=== PATIENT | male | born 1980 | race Caucasian/White ===

== ENCOUNTER 2020-09-02 18:34 | Emergency (ER) | payer BC, SELFPAY ==
--- NOTE | ~2020-09-02 | CT_ITS ---
EXAMINATION: CT abdomen pelvis wo con DATE: 09/02/2020 20:27 INDICATION: Left flank pain. Hematuria. TECHNIQUE: Computed tomography (CT) of the abdomen and pelvis was performed without intravenous contr ast. Automated exposure control and iterative reconstruction technique were employed. The dose-length product was 319.09 mGy-cm. COMPARISON: None FINDINGS: Lung bases are clear. Heart size is normal. No pericardial or pleural effusion. Liver, gallbladder, s pleen, pancreas and bilateral adrenal glands are normal. Right kidney and ureter are normal with no u rolithiasis or hydronephrosis. There are at least 6 nonobstructing stones in the left kidney, the two largest relatively elongated stones in maximal dimension measure 8 mm at a lower pole calyx and 7 mm at the infundibulum of one of the lower pole calyces. No left-sided ureteral stones or hydronephrosi s. Phlebolith in the left hemipelvis. Decompressed bladder is unremarkable. Bowels including the appe ndix are normal. No free intraperitoneal gas or fluid. No pathologically enlarged abdominal or pelvic lymphadenopathy. Mild bilateral hip osteoarthritis. IMPRESSION: 1. A few nonobstructing stones in the left kidney. Reviewed, dictated and finalized at location A. TH IT SPECIALIST
[2020-09-02 18:37] VITALS: BP 135/81; PULSE 78; RESP 18; TEMP 36.6; O2SAT 100
[2020-09-02 18:50] LABS: Basophils Percent Auto 0.6 % (0.2-1.2); Eosinophils Absolute Auto 0.1 K/mm3 (0-0.3); Eosinophils Percent Auto 1.6 % (0-4.4); Hematocrit 44.2 % (42.0-52.0); Hemoglobin 14.4 g/dL (14.0-18.0); Immature Granulocyte Absolute 0.01 K/mm3 (0.00-0.031); Immature Granulocyte Percent A 0.2 % (0-0.5); Lymphocytes Absolute Auto 2.36 K/mm3 (0.9-3.2); Lymphocytes Percent Auto 36.6 % (18.3-44.2); Mean Corpuscular HGB Conc 32.6 g/dl (32-36); Mean Corpuscular Hemoglobin 31.6 pg (26-34); Mean Corpuscular Volume 96.9 fl (80-100); Mean Platelet Volume 9.6 fl (7.4-10.4); Monocytes Absolute Auto 0.4 K/mm3 (0.1-0.6); Monocytes Percent Auto 6.7 % (2.6-8.5); Neutrophils Absolute Auto 3.5 K/mm3 (1.3-6.7); Neutrophils Percent Auto 54.3 % (45.5-73.1); Platelet Count Result 318 k/mm3 (150-375); Red Blood Count 4.56 M/mm3 (4.6-6.20); Red Cell Distribution Width 12.5 % (11.5-14.5); White Blood Count 6.5 K/mm3 (4.5-10.0)
[2020-09-02 19:01] LABS: Alanine Aminotransferase 17 U/L (4-50); Albumin Level 4.5 g/dL (3.5-5.1); Alkaline Phosphatase 49 U/L (38-126); Anion Gap 6 mmol/L (8-16); Aspartate Amino Transferase 20 U/L (17-59); Bilirubin,Total 1.7 mg/dL (0.2-1.3); Blood Urea Nitrogen 14 mg/dL (9-20); Calcium 9.4 mg/dL (8.4-10.2); Carbon Dioxide 33 mmol/L (22-30); Chloride 101 mmol/L (98-107); Estimated CRCL calculation 114 ml/min; Estimated Glomerular Filt Rate > 60; Glucose 114 mg/dL (75-110); Lipase 108 U/L (23-300); Potassium 3.9 mmol/L (3.4-5.0); Sodium 140 mmol/L (137-145)
[2020-09-02 19:06] LABS: Add Urine Microscopic? YES; Appearance Urine Clear (Clear); Bacteria Urine Trace /hpf; Bilirubin Urine Negative (Negative); Blood Urine 3+ (Negative); Color Urine Straw (Yellow); Glucose Urine UA Negative (Negative); Ketones Urine Negative (Negative); Leukocyte Esterase Ur Negative LEU/UL (Negative); Mucus Urine Rare /lpf; Nitrate Urine Negative (Negative); Protein Urine Negative (Negative); RBC Urine 0-2 /hpf (0-2); Specific Grav Ur 1.006 (1.001-1.035); Urobilinogen Urine Negative mg/dL (<2.0); WBC Urine 0-3 /hpf
--- NOTE | 2020-09-02 20:19 | ED.GENADULT ---
HPI - General Adult General Chief complaint: Urogenital-Male Stated complaint: gross hematuria Time Seen by Provider: 09/02/20 18:54 Source: patient History of Present Illness HPI narrative: Patient is a 39 y/o male complaining of left back pain since 4 days ago. He describes his pain as sharp and rates it as 2-3/10. He states that his pain radiates to his lower abdomen. He also has intermittent dark urine. He denies any fever, chill, vomiting or dysuria. He was seen at urgent care earlier and told to come to ED for evaluation. Review of Systems Constitutional: Constitutional: Denies chills, Denies fever(s), Denies headache(s) and Denies weakness Eyes: Eyes: Denies blurry vision ENT: Denies headache(s) and Denies neck pain Cardiovascular: Cardiovascular: Denies chest pain and Denies dyspnea Respiratory: Respiratory: Denies cough and Denies dyspnea Gastrointestinal: Gastrointestinal: Denies abdominal pain, Denies diarrhea, Denies nausea and Denies vomiting Genitourinary: Genitourinary: Reports hematuria, Denies dysuria and Reports flank pain Musculoskeletal: Musculoskeletal: Denies back pain and Denies neck pain Neurologic: Denies headache(s) and Denies weakness [facility] Social History Social History Gender identity (if verbalized by the patient): Male Exam Const: General: no acute distress and well developed Orientation/consciousness: oriented to person, oriented to place, oriented to time and patient oriented x3 HENMT: Head: normocephalic Ears: external ears normal General nose exam: Normal external nose present Eyes: General: appearance normal, both eyes and all related structures Conjunctivae: conjunctivae normal Neck: Neck: normal visual inspection and full ROM Chest: Chest palpation & inspection: normal inspection of the chest and no tenderness Resp: Effort & Inspection: normal respiratory effort Auscultation: clear to auscultation bilaterally Cardio: Rate: regular rate Rhythm: regular rhythm GI: GI Palp: No abdominal tenderness and Yes Soft to palpation Skin: General skin exam: normal color and turgor normal Neuro: General: oriented to person, oriented to place, oriented to time and patient oriented x3 Cognition (Neuro): normal cognition Extrem: General: normal to inspection, full ROM and no pedal edema Psych: Appearance: grossly normal Mental Status: mental status grossly normal Affect: normal affect Course Vital Signs Vital signs: Vital Signs Temperature 36.6 C 09/02/20 18:37 Pulse Rate 78 09/02/20 18:37 Respiratory Rate 18 09/02/20 18:37 Blood Pressure 135/81 09/02/20 18:37 Pulse Oximetry 100 09/02/20 18:37 Temperature 36.6 C 09/02/20 18:37 Pulse Rate 78 09/02/20 18:37 Respiratory Rate 18 09/02/20 18:37 Blood Pressure 135/81 09/02/20 18:37 Pulse Oximetry 100 09/02/20 18:37 Medical Decision Making Vital Signs Vital Signs: Vital Signs Temperature 36.6 C 09/02/20 18:37 Pulse Rate 78 09/02/20 18:37 Respiratory Rate 18 09/02/20 18:37 Blood Pressure 135/81 09/02/20 18:37 Pulse Oximetry 100 09/02/20 18:37 Temperature 36.6 C 09/02/20 18:37 Pulse Rate 78 09/02/20 18:37 Respiratory Rate 18 09/02/20 18:37 Blood Pressure 135/81 09/02/20 18:37 Pulse Oximetry 100 09/02/20 18:37 Lab Data Result diagrams: 09/02/20 18:44 09/02/20 18:44 Labs: Lab Results 09/02/20 09/02/20 09/02/20 Range/Units 18:44 18:44 18:50 WBC 6.5 (4.5-10.0) K/mm3 RBC 4.56 L (4.6-6.20) M/mm3 Hgb 14.4 (14.0-18.0) g/dL Hct 44.2 (42.0-52.0) % MCV 96.9 (80-100) fl MCH 31.6 (26-34) pg MCHC 32.6 (32-36) g/dl RDW 12.5 (11.5-14.5) % Plt Count 318 (150-375) k/mm3 MPV 9.6 (7.4-10.4) fl Immature Gran % (Auto) 0.2 (0-0.5) % Neut % (Auto) 54.3 (45.5-73.1) % Lymph % (Auto) 36.6 (18.3-44.2) % [place] % (Aut
[2020-09-02 21:11] VITALS: BP 106/69; PULSE 76; RESP 16; O2SAT 99
[2020-09-02 22:04] VITALS: BP 107/62; PULSE 72; RESP 18; O2SAT 99
== END 2020-09-02 22:24 | disposition home or self-care (01) ==
PROVIDERS: Emergency Medicine; Emergency Provider Emergency Medicine
DX: N20.0 Calculus of kidney (principal)
CPT/HCPCS: 36415; 74176; 80053; 81001; 83690; 85025; 99284

== ENCOUNTER → 2020-09-09 15:41 | Outpatient (CLI) | payer BC, SELFPAY ==
--- NOTE | ~2020-09-09 | XR_ITS ---
EXAMINATION: XR abdomen/kub 1V DATE: 09/09/2020 15:53 INDICATION: Knee stones TECHNIQUE: A supine view of the abdomen on 2 radiographs was obtained. COMPARISON: CT dated 09/02/2020 FINDINGS: The 3 largest left renal stones are visible in the left kidney including an 8 mm stone at the lower p ole, a 7 mm stone which appears to be repositioned now at the renal pelvis and a 2 mm stone at the up per pole. Phlebolith in the left hemipelvis. No right-sided urolithiasis or stones along the course o f the ureters. Normal bowel gas pattern. Lung bases are clear. IMPRESSION: 1. Left nephrolithiasis. Reviewed, dictated and finalized at location A. EMENT DIRECTOR IMPRESSION: 1. Left nephrolithiasis.
== END ==
PROVIDERS: Visit Provider Urology
DX: N20.0 Calculus of kidney (principal)
CPT/HCPCS: 74018

== ENCOUNTER 2020-09-12 14:43 | Outpatient (CLI) | payer BC, SELFPAY ==
[2020-09-12 15:29] LABS: Prothrombin Time 13.5 Seconds (11.1-14.7)
[2020-09-12 15:30] LABS: Partial Thromboplastin Time 26.6 SECONDS (22.3-36.8)
== END 2020-09-12 14:44 | disposition home or self-care (01) ==
PROVIDERS: Visit Provider Urology
DX: Z01.818 Encounter for other preprocedural examination (principal); N20.0 Calculus of kidney
CPT/HCPCS: 36415; 85610; 85730; 87086

== ENCOUNTER 2020-09-19 01:21 | Day surgery (SDC) | payer BC, SELFPAY ==
[2020-09-11 16:46] VITALS: BMI 24.4
[2020-09-19] VITALS (7 sets, daily range): BP systolic 109–137; BP diastolic 60–87; PULSE 57–79; RESP 14–20; TEMP 36.4–36.6; O2SAT 98–100
--- NOTE | ~2020-09-19 | XR_ITS ---
EXAMINATION: XR abdomen/kub 1V DATE: 09/19/2020 06:48 INDICATION: Lithotripsy TECHNIQUE: A supine view of the abdomen on 2 radiographs was obtained. COMPARISON: 09/09/2020 FINDINGS: Again seen are couple 7-8 mm stones projecting over the mid and lower left kidney. No evident right-s ided urolithiasis. A couple unchanged phleboliths in the left hemipelvis. Normal bowel gas pattern wi th moderate amount of colonic stool. Lung bases are clear. Bones are unremarkable. IMPRESSION: 1. Unchanged 7-8 mm left renal stones. Reviewed, dictated and finalized at location A. SCOPIC ENGINEERING TECHNICIAN
--- NOTE | 2020-09-19 07:00 | WPDHPUPDATE1 ---
History and Physical Update Update Date/Time: 09/19/20 07:00 History and Physical has been reviewed, including an updated exam of the patient. There are NO changes in the patient's condition. Risks, benefits, and alternatives have been discussed and questions answered. Patient agrees to proceed with procedure.
--- NOTE | 2020-09-19 07:05 | P.PNAN_ITS ---
Anes - Initial Pre Proc Eval Procedure: Operation Date: 09/19/20 08:30 Proposed Procedures p Left Extracorporeal Shock Wave Lithotripsy - Hayden Donnelly MD Date/Time: 09/19/20 07:05 Surgeon: Hayden Donnelly MD Pre Op Diagnosis: Left Kidney Stone Patient Data Age: 39 Gender: M Height: 5 ft 10 in Weight: 74 kg Allergies Allergy/AdvReac Type Severity Reaction Status Date / Time No Known Allergies Allergy Verified 09/19/20 06:51 Home Medications Medication Instructions Recorded Confirmed Type No Home Medications 09/11/20 09/19/20 History Patient hx anesthesia problems: none Family hx anesthesia problems: none [facility] Social History Social History Smoking status: Never smoker Living arrangements: with roommate(s) Gender identity (if verbalized by the patient): Male Spiritual care concerns: No Anes - Eval Final PreProcedure Day of Procedure 09/19/20 07:05 Patient weight: normal Heart: regular rate and rhythm Lungs: clear to auscultation Airway: Mallampati scale class II Neurological: alert and oriented Last oral intake: >/= 8 hours ASA classification: I Emergent: no Anesthetic plan: proceed Anesthesia type and monitoring: general LMA and standard monitoring Informed Consent: The patient's anesthetic plan and its attendant risks and benefits were discussed with the patient/family/POA. Questions were solicited and answers provided to the satisfaction of the patient/family/POA.
[2020-09-19] MEDS: LACTATED RINGERS 1,000 ML 30 ML IV CONT (07:16)
[2020-09-19] MEDS: ceFAZolin 2 GM/D5W 50 ML 2 GM/50 ML BAG IVPB (08:12)
--- NOTE | 2020-09-19 08:45 | P.OP_ITS ---
Procedure Note - Detailed Date of procedure: 09/19/20 Pre-op diagnosis: Left Kidney Stone Post-op diagnosis: same Procedure performed: Left ESWL Description of procedure: The patient was brought to the operative suite where he was placed in the supine position on the Dornier lithotripsy table. The focal point of the lithotripter was placed at two, contiguous 7mm left renal calculi. A total of 2500 shocks were delivered at a power setting of 4. There appeared to be good fragmentation of the stone. The patient tolerated the procedure well and was taken to the recovery room in good condition. Anesthesia: GLMA Surgeon: Hayden Donnelly MD Reconditioner: None Estimated blood loss (mL): 0 Drains: No Packing: No Pathology: none sent Complications: No immediate complications Condition: stable Disposition: PACU
== END 2020-09-19 10:49 | disposition home or self-care (01) ==
PROVIDERS: Visit Provider Urology
PROC: (CPT 50590; principal; 2020-09-19 08:30)
DX: N20.0 Calculus of kidney (principal)
CPT/HCPCS: 50590; 74018; J0690; J1100; J2250; J2270; J2405; J2704; J7120

== ENCOUNTER 2020-09-26 18:04 | Outpatient (CLI) | payer BC, SELFPAY ==
--- NOTE | ~2020-09-26 | XR_ITS ---
EXAMINATION: XR abdomen/kub 1V INDICATION: Left nephrolithiasis TECHNIQUE: Supine views of the abdomen were obtained on 2 radiographs. COMPARISON: 09/19/2020 FINDINGS: A previously identified area millimeters stone of the left mid kidney is no longer identifi ed, likely due to interval lithotripsy. There is a stable 12 mm stone in the left kidney lower pole. No stone fragments are identified along the expected course of the left ureter. A phlebolith is noted in the left pelvis. The visualized lung bases are clear. The bowel gas pattern is normal. IMPRESSION: 1. Likely interval lithotripsy of a stone in the left mid kidney. 2. Stable nephrolithiasis of the left kidney lower pole. Reviewed, dictated and finalized at location A. RVISOR CALIBRATION
== END 2020-09-26 18:05 | disposition home or self-care (01) ==
PROVIDERS: Visit Provider Urology
DX: N20.0 Calculus of kidney (principal)
CPT/HCPCS: 74018

== ENCOUNTER 2021-07-24 10:16 | Outpatient (CLI) | payer BC, SELFPAY ==
--- NOTE | ~2021-07-24 | XR_ITS ---
EXAMINATION: XR abdomen/kub 1V EXAM DATE: 07/24/2021 10:31 INDICATION: Left-sided kidney stone. TECHNIQUE: Frontal projection of the upper abdomen, frontal projection lower abdomen/pelvis for inter pretation. Comparison is made to prior examination from 02/26/2021. FINDINGS: There is approximately 1 cm stone or cluster of calyceal stones in the inferior pole of th e left kidney, probably couple of other punctate calcifications. No definite right nephrolithiasis. M ild lumbar levoscoliosis. Moderate amount of colonic stool and gas. No small bowel obstruction. IMPRESSION: Left nephrolithiasis unchanged Reviewed, dictated and finalized at location A. STIAN SCIENCE PRACTITIONER
== END 2021-07-24 10:17 | disposition home or self-care (01) ==
LOC: ANHIMG 10:21
PROVIDERS: Visit Provider Urology
DX: N20.0 Calculus of kidney (principal); M41.9 Scoliosis, unspecified
CPT/HCPCS: 74018

== ENCOUNTER 2022-03-20 10:37 | Outpatient (CLI) | payer BC, SELFPAY ==
--- NOTE | ~2022-03-20 | XR_ITS ---
EXAM: XR abdomen/kub 1V DATE: 03/20/2022 11:03 HISTORY: Kidney stone on left side, 1 year follow up . COMPARISON: 07/24/2021. FINDINGS: Clear lung bases. Normal bowel gas pattern. No organomegaly. Stable left upper and lower p ole calcifications. Lumbar scoliosis, otherwise the regional bones and soft tissues normal for age. IMPRESSION: Stable left nephrolithiasis. Reviewed, dictated and finalized at location K.
== END 2022-03-20 10:38 | disposition home or self-care (01) ==
LOC: ANHIMG 10:50
PROVIDERS: Visit Provider Urology
DX: N20.0 Calculus of kidney (principal)
CPT/HCPCS: 74018

== ENCOUNTER 2022-09-17 16:34 | Outpatient (CLI) | payer BC, SELFPAY ==
--- NOTE | ~2022-09-17 | XR_ITS ---
EXAMINATION: XR abdomen/kub 1V DATE: 09/17/2022 17:09 INDICATION: Kidney stone. TECHNIQUE: A supine view of the abdomen on 2 radiographs was obtained. COMPARISON: CT abdomen and pelvis 09/02/2020, abdomen radiographs 03/20/2022 FINDINGS: There are no dilated loops of bowel. There is a phlebolith in left pelvis. There are approx imately 3 stones in left kidney measuring up to 10 mm. IMPRESSION: 1. Left kidney stones. Reviewed, dictated and finalized at location A. GRADER IMPRESSION: 1. Left kidney stones.
== END 2022-09-17 16:35 | disposition home or self-care (01) ==
LOC: ANHIMG 16:55
PROVIDERS: PCP Family Medicine; Visit Provider Nurse Practitioner Adult Health
DX: N20.0 Calculus of kidney (principal)
CPT/HCPCS: 74018

== ENCOUNTER 2022-09-27 10:29 | Outpatient (CLI) | payer BC, SELFPAY ==
[2022-09-27 18:54] LABS: Hematocrit 46.7 % (42.0-52.0); Hemoglobin 14.5 g/dL (14.0-18.0); Mean Corpuscular Hemoglobin 31.4 pg (26-34); Mean Corpuscular Volume 101.1 fl (80-100); Mean Platelet Volume 10.1 fl (7.4-10.4); Platelet Count Result 316 k/mm3 (150-375); Red Blood Count 4.62 M/mm3 (4.6-6.20); White Blood Count 4.5 K/mm3 (4.5-10.0)
[2022-09-27 20:45] LABS: Alanine Aminotransferase 22 U/L (6-50); Albumin Level 4.8 g/dL (3.5-5.1); Alkaline Phosphatase 56 U/L (38-126); Anion Gap 5 mmol/L (8-16); Aspartate Amino Transferase 59 U/L (17-59); Bilirubin,Total 1.9 mg/dL (0.2-1.3); Blood Urea Nitrogen 11 mg/dL (9-20); Calcium 9.1 mg/dL (8.4-10.2); Carbon Dioxide 33 mmol/L (22-30); Chloride 100 mmol/L (98-107); Cholesterol 195 mg/dL (0-200); Estimated Glomerular Filt Rate > 60; Glucose 78 mg/dL (65-110); HDL Direct 54 mg/dL; Potassium 4.1 mmol/L (3.4-5.0); Sodium 138 mmol/L (137-145); Triglycerides 50 mg/dL (<150)
[2022-09-27 20:57] LABS: LDL Cholesterol Direct 99 mg/dL
[2022-10-13 13:12] LABS: Gliadin AB, IgG <1.0 U/mL (<15.0); TTG IGA AB <1.0 U/mL (<15.0)
== END 2022-09-27 10:30 | disposition home or self-care (01) ==
LOC: ANHBWCLAB 10:30
PROVIDERS: PCP Family Medicine; Visit Provider Family Medicine
DX: Z00.00 Encounter for general adult medical examination without abnormal findings (principal); R14.0 Abdominal distension (gaseous); R21 Rash and other nonspecific skin eruption
CPT/HCPCS: 36415; 80053; 80061; 83516; 85027; 86003; 86255

== ENCOUNTER 2022-12-04 10:05 | Outpatient (CLI) | payer BC, SELFPAY ==
[2022-12-04 10:36] LABS: INR 0.9
[2022-12-04 10:37] LABS: Partial Thromboplastin Time 26.5 SECONDS (22.3-36.8)
== END 2022-12-04 10:06 | disposition home or self-care (01) ==
PROVIDERS: PCP Family Medicine; Visit Provider Urology
DX: N20.0 Calculus of kidney (principal); Z01.818 Encounter for other preprocedural examination
CPT/HCPCS: 36415; 85610; 85730; 87086

== ENCOUNTER 2022-12-10 01:50 | Day surgery (SDC) | payer BC, SELFPAY ==
[2022-11-30 15:18] VITALS: BMI 24.4
--- NOTE | 2022-11-30 15:22 | PC.NURSE ---
Report to the Outpatient Waiting Room, entrance under the green pavilion located off [facility], at time 8:30 on date 12/10/22. Planned Procedure Time: 10:30. Time changes happen often and if your time is changed the preop area will call you the afternoon before. - You and your visitor will be asked to self-screen and do not enter if you have any COVID symptoms. - A mask is optional within the hospital at this time. Patients may have clear liquids (water, carbonated beverages, clear teas, apple juice) until 3 hours prior to surgery (7:30) with a maximum of 20 ounces. - No food from midnight until time of surgery Take the following medications with a SIP of water the morning of surgery: N/A DO NOT STOP ANY OF YOUR OTHER PRESCRIPTION MEDICATIONS PRIOR TO SURGERY EXCEPT THE FOLLOWING Medications to discontinue per physician: N/A Date to take last dose: N/A Please no make-up, nail saudi ar[place]ian, hairspray, perfume, deodorant, or body powder the day of surgery. No jewelry (including any body piercings) or valuables the day of surgery, leave them at home. Please take a shower or bath the night before, or the morning of, surgery with an antibacterial soap. Wear comfortable, loose fitting clothing. - Jewelry must be removed prior to entering the operating room. Rings and piercings that are not removed may be cut off. - The hospital will not accept responsibility for valuables. - Please leave all valuables, including medications, at home the day of surgery. If you are going home after surgery, a licensed pick up driver must drive you home. - NO public transportation without another adult if you receive anesthesia. - We recommend that an adult stay with you for 24 hours following discharge. - We also recommend that you do not drive, make important decision, drink alcoholic beverages, or take any drugs that were not prescribed by your health care provider for at least 24 hours after your discharge time. Follow any additional instructions given to you from your surgeon. If you or anyone in your household have experienced Covid symptoms in the past week, please notify your surgeon or the nurse liaison at the phone number below for possible testing. Telephone instructions given to PT - KASIE ALEMAN and asked if any additional questions and then verbalized understanding. Patient advised to call surgeon office or pre surgery nurse liaison [phone] if any additional questions.
--- NOTE | 2022-12-06 18:44 | P.HP_ITS ---
History of Present Illness History of Present Illness Consent: Risks, benefits, and alternatives have been discussed and questions answered. Patient agrees to proceed with procedure. Chief complaint: left kidney stone Narrative: David Sy is a 42 year old male with a history of recurrent urolithiasis who was recently seen in routine follow-up. Imaging demonstrated stones in his left kidney which had increased in size since February 2022. He now has 3 stones measuring up to 10 mm on the left side. He has smaller stones on the right. After discussion of options he has elected to proceed with left ESWL. He is aware the risk including, but not limited to, need for additional procedures, perinephric hematoma and need for a stent placement. Review of Systems Review of Systems: All systems reviewed & are unremarkable except as noted in HPI and below PMFSH Family History Family History (Updated 09/27/22 @ 09:10 by Sherlyn Caraballo MA) Father Hypertension Social History Social History (Updated 09/27/22 @ 09:12 by Sherlyn Caraballo MA) Smoking status: Never smoker Alcohol intake: never Alcohol use details: Beer _1-2 every few month's Substance use: never Substance use type: does not use Lack of Transportation: No Lack of Food: Never True Current Housing: I Have Housing Concerned About Future Housing: No Difficulty Paying Gas/Electric Bills: No Difficulty Paying for Meds: No Currently Unemployed: No Education: Master's Degree or Higher Difficulty w/ Childcare or Family Care: No Living arrangements: with friend(s) Additional living arrangements comments: GIRLFRIEND Occupation/Education: occupation Gender identity (if verbalized by the patient): Male Additional gender identity comments: SIUE DENTIST Spiritual care concerns: No Agree to blood products: Yes Meds Home Medications and Allergies Home Medications Medication Instructions Recorded Confirmed Type No Home Medications 11/30/22 11/30/22 History Allergies Allergy/AdvReac Type Severity Reaction Status Date / Time No Known Allergies Allergy Verified 11/30/22 15:18 Exam Const: General: no acute distress Resp: Effort & Inspection: normal respiratory effort GI: Inspection: non-distended GI Palp: No abdominal tenderness and No Guarding due to palpation present (GI) Auscultation: normal bowel sounds Assessment and Plan Assessment and plan (1) Bilateral renal stones: Code(s): N20.0 - Calculus of kidney Status: Acute Assessment and Plan: * left ESWL
--- NOTE | 2022-12-09 09:35 | P.PNAN_ITS ---
Anes - Initial Pre Proc Eval Procedure: Operation Date: 12/10/22 10:30 Proposed Procedures p Left Extracorporeal Shock Wave Lithotripsy - Hayden Donnelly MD Date/Time: 12/09/22 09:35 Surgeon: Hayden Donnelly MD Pre Op Diagnosis: left kidney stone Patient Data Age: 42 Gender: M Height: 1.78 m Weight: 77.15 kg Allergies Allergy/AdvReac Type Severity Reaction Status Date / Time No Known Allergies Allergy Verified 12/10/22 09:13 Home Medications Medication Instructions Recorded Confirmed Type No Home Medications 11/30/22 12/10/22 History Patient hx anesthesia problems: none Family hx anesthesia problems: none Results Review: All pre-operative results and documents have been reviewed as part of the pre- operative evaluation. [facility] Family History Family History (Updated 09/27/22 @ 09:10 by Sherlyn Caraballo MA) Father Hypertension Social History Social History (Updated 09/27/22 @ 09:12 by Sherlyn Caraballo MA) Smoking status: Never smoker Alcohol intake: never Alcohol use details: Beer _1-2 every few month's Substance use: never Substance use type: does not use Lack of Transportation: No Lack of Food: Never True Current Housing: I Have Housing Concerned About Future Housing: No Difficulty Paying Gas/Electric Bills: No Difficulty Paying for Meds: No Currently Unemployed: No Education: Master's Degree or Higher Difficulty w/ Childcare or Family Care: No Living arrangements: with friend(s) Additional living arrangements comments: GIRLFRIEND Occupation/Education: occupation Gender identity (if verbalized by the patient): Male Additional gender identity comments: SIUE DENTIST Spiritual care concerns: No Agree to blood products: Yes Anes - Eval Final PreProcedure Day of Procedure 12/09/22 09:35 Patient weight: normal Heart: regular rate and rhythm Lungs: clear to auscultation and normal air movement Airway: Mallampati scale class II Neurological: alert and oriented Last oral intake: >/= 8 hours ASA classification: I Emergent: no Anesthetic plan: proceed Anesthesia type and monitoring: general LMA and standard monitoring Results Review: All pre-operative results and documents have been reviewed as part of the pre- operative evaluation. Informed Consent: The patient's anesthetic plan and its attendant risks and benefits were discussed with the patient/family/POA. Questions were solicited and answers provided to the satisfaction of the patient/family/POA.
--- NOTE | ~2022-12-10 | XR_ITS ---
EXAMINATION: XR abdomen/kub 1V DATE: 12/10/2022 08:48 INDICATION: Left kidney stone. TECHNIQUE: A supine view of the abdomen was obtained. COMPARISON: CT abdomen and pelvis 09/02/2020, abdomen radiograph 09/17/2022 FINDINGS: There are no dilated loops of bowel. There is a phlebolith in left pelvis. There are 9 mm a nd 2 mm stones in left kidney. IMPRESSION: 1. Left kidney stones. Reviewed, dictated and finalized at location A. IMPRESSION: 1. Left kidney stones.
--- NOTE | 2022-12-10 06:51 | WPDHPUPDATE1 ---
History and Physical Update Update Date/Time: 12/10/22 06:51 History and Physical has been reviewed, including an updated exam of the patient. There are NO changes in the patient's condition. Risks, benefits, and alternatives have been discussed and questions answered. Patient agrees to proceed with procedure.
[2022-12-10 08:56] VITALS: BP 107/72; PULSE 74; RESP 16; TEMP 36.4; O2SAT 100
[2022-12-10] MEDS: LACTATED RINGERS 1,000 ML 30 ML IV CONT (09:23)
--- NOTE | 2022-12-10 09:58 | SUR.PREOP ---
updated patient delay to start procedure
[2022-12-10] MEDS: ceFAZolin 2 GM/D5W 50 ML 2 GM/50 ML BAG IVPB (11:18)
--- NOTE | 2022-12-10 11:25 | W.PM.PROC2 ---
Procedure Note - Detailed Date of Procedure 12/10/22 Pre-op Diagnosis Left kidney stone Post-op Diagnosis Same Procedure Performed Left ESWL Surgeon Hayden Donnelly MD Anesthesia General Description of Procedure The patient was brought to the operative suite where he was placed in the supine position on the Dornier lithotripsy table. The focal point of the lithotripter was placed at a stone or collection of contiguous stones in the left lower pole. A total of 2500 shocks were delivered at a power setting of 4. There appeared to be good fragmentation of the stone. The patient tolerated the procedure well and was taken to the recovery room in good condition. Drains No Packing Yes Pathology None sent Condition Stable Disposition PACU
[2022-12-10 12:03] VITALS: BP 101/73; PULSE 52; RESP 10; TEMP 36.1; O2SAT 100
[2022-12-10 12:18] VITALS: BP 103/73; PULSE 46; RESP 13; O2SAT 100
[2022-12-10 12:33] VITALS: BP 109/73; PULSE 68; RESP 12; O2SAT 100
[2022-12-10 12:37] VITALS: BP 112/64; PULSE 61; RESP 12
[2022-12-10 13:05] VITALS: BP 114/70; PULSE 47; RESP 12
== END 2022-12-10 13:12 | disposition home or self-care (01) ==
PROVIDERS: PCP Family Medicine; Visit Provider Urology
PROC: (CPT 50590; principal; 2022-12-10 10:30)
DX: N20.0 Calculus of kidney (principal)
CPT/HCPCS: 50590; 74018; J0690; J1100; J2250; J2405; J2704; J3010; J7120

== ENCOUNTER 2023-01-15 13:35 | Outpatient (CLI) | payer BC, SELFPAY ==
--- NOTE | ~2023-01-15 | XR_ITS ---
Supine and upright views of the abdomen Clinical history: Renal stone COMPARISON: 12/10/2022 Findings: Bowel gas pattern is nonspecific. No evidence for obstruction or free air. Multiple small l eft renal stones are present, measuring up to approximately 3 mm. Probable tiny punctate right renal stone present.. Osseous structures are intact. Impression: Multiple small left renal stones, predominantly at the lower pole. Correlate for interval lithotripsy . Probable punctate right renal stones. Reviewed, dictated and finalized at location . Impression: Multiple small left renal stones, predominantly at the lower pole. Correlate fo r interval lithotripsy. Probable punctate right renal stones.
== END 2023-01-15 13:36 | disposition home or self-care (01) ==
PROVIDERS: PCP Family Medicine; Visit Provider Urology
DX: N20.0 Calculus of kidney (principal)
CPT/HCPCS: 74018

== ENCOUNTER 2023-09-29 08:56 | Outpatient (CLI) | payer BC, SELFPAY ==
--- NOTE | ~2023-09-29 | XR_ITS ---
Left Shoulder Technique: AP and axillary views were obtained. Clinical History: Pain Findings: No fracture or dislocation is seen. Osseous alignment is anatomic. The glenohumeral and acr omioclavicular joint spaces are preserved. Soft tissues are unremarkable. Impression: Unremarkable left shoulder radiographs. Reviewed, dictated and finalized at [facility]. E MAKER Impression: Unremarkable left shoulder radiographs.
[2023-09-29 19:22] LABS: Alanine Aminotransferase 16 U/L (6-50); Albumin Level 4.2 g/dL (3.5-5.1); Alkaline Phosphatase 54 U/L (38-126); Anion Gap 3 mmol/L (8-16); Aspartate Amino Transferase 36 U/L (17-59); Bilirubin,Total 1.2 mg/dL (0.2-1.3); Blood Urea Nitrogen 14 mg/dL (9-20); Calcium 9.2 mg/dL (8.4-10.2); Carbon Dioxide 32 mmol/L (22-30); Chloride 103 mmol/L (98-107); Cholesterol 170 mg/dL (0-200); Estimated Glomerular Filt Rate > 60; Glucose 85 mg/dL (65-110); HDL Direct 50 mg/dL; Potassium 4.6 mmol/L (3.4-5.0); Sodium 138 mmol/L (137-145); Triglycerides 39 mg/dL (<150); Uric Acid 5.4 mg/dL (3.5-8.5)
[2023-09-29 19:34] LABS: Hematocrit 46.8 % (42.0-52.0); Hemoglobin 14.3 g/dL (14.0-18.0); Mean Corpuscular HGB Conc 30.6 g/dl (32-36); Mean Corpuscular Hemoglobin 30.9 pg (26-34); Mean Corpuscular Volume 101.1 fl (80-100); Mean Platelet Volume 10.3 fl (7.4-10.4); Platelet Count Result 319 k/mm3 (150-375); Red Blood Count 4.63 M/mm3 (4.6-6.20); Red Cell Distribution Width 12.7 % (11.5-14.5); White Blood Count 5.1 K/mm3 (4.5-10.0)
[2023-09-29 19:39] LABS: LDL Cholesterol Direct 106 mg/dL
== END 2023-09-29 08:57 | disposition home or self-care (01) ==
PROVIDERS: PCP Nurse Practitioner Adult Health; Visit Provider Nurse Practitioner Adult Health
DX: Z13.9 Encounter for screening, unspecified (principal); M25.512 Pain in left shoulder; Z87.442 Personal history of urinary calculi
CPT/HCPCS: 36415; 73030; 80053; 80061; 84443; 84550; 85027

== ENCOUNTER 2023-11-26 09:04 | Outpatient (CLI) | payer BC, SELFPAY ==
--- NOTE | ~2023-11-26 | XR_ITS ---
EXAM: XR abdomen/kub 1V DATE: 11/26/2023 09:23 HISTORY: 6 MONTH F/U KIDNEY STONE LT SIDE, NO CURRENT SYMPTOMS . COMPARISON: 01/15/2023. FINDINGS: Clear lung bases. Normal bowel gas pattern. No organomegaly. Stable left upper and lower p ole calcifications. Stable punctate right upper pole calcification. Mild bilateral hip osteoarthritis . IMPRESSION: Stable nephrolithiasis. Reviewed, dictated and finalized at location K. IMPRESSION: Stable nephrolithiasis.
== END 2023-11-26 09:05 | disposition home or self-care (01) ==
LOC: ANHIMG 09:06
PROVIDERS: PCP Family Medicine; Visit Provider Urology
DX: N20.0 Calculus of kidney (principal)
CPT/HCPCS: 74018

== ENCOUNTER 2024-12-08 08:18 | Outpatient (CLI) | payer OTHER, SELFPAY ==
--- NOTE | ~2024-12-08 | XR_ITS ---
XR abdomen/kub 1V Ordering provider: Hayden Donnelly MD History: . KIDNEY STONE ON LEFT SIDE . Comparison: November 26, 2023 FINDINGS: BOWEL: Nonobstructive bowel gas pattern. ORGANOMEGALY: None. SIGNIFICANT PATHOLOGIC CALCIFICATIONS: Tiny left kidney stone is seen in the upper pole. Faint calcif ications are seen in the left kidney lower pole.. Possible right kidney stone is not excluded. Fecal material is overlapping the kidneys. OTHER: No free air is seen under the diaphragm. IMPRESSION: NO ACUTE ABDOMINAL FINDINGS. Left kidney stones. Possible right kidney stone. Reviewed, dictated and finalized at location A.
--- OUTSIDE RECORDS SUMMARY | 2024-12-08 08:22 | XMS_ITS | Continuity of Care Document ---
Author Organization [facility] Address [address] [place] [address] Phone Care Team Providers Care Switchman Name Role Phone Genna JESUS, Darryl Unavailable Unavailab le Allergies, Adverse Reactions, Alerts Substance Reaction Status Criticality No Known Allergies Active No Inform ation Medications Medication Instructions Dosage Effective Dates (start - stop) Status Comments Naprosyn 500 mg tablet take 1 tablet by oral route 2 times every day with food 500 MG - Active Procedures Procedure Date OFFICE/OUTPATIENT VISIT [facility] Advance Directives Directive Yes / No Effective Date File Name No Information Encounters Encounter Description Practice Location Reason(s) For Visit Diagnoses Date Provider Providers Copied on Encounter OFFICE/OUTPA TIENT VISIT [facility], [address], [place], [address], [place] tel:[phone] [facility] R hand/wrist (chief complaint) Arthritis of carpometacarp al (CMC) joint of right thumb 5-201 7 Lenny Andrews. [address], [place], [place], [id number]. tel:[phone] Family History Family Member Type Diagnosis Age At Onset Mother Problem (finding) Alive and well Payers Payer name Insurance type Covered republican ID Authoriza tion(s) No Information Social History Type Description Quantity Date Captured Comments Alcohol Use Details Unknown Caffeine Use Details Unknown Tobacco Use Status Never smoked tobacco 2016 Smoking Status Never smoker Non-Smoking Tobacco Use Details : No Details Available : No Details Available Sex Male Vital Signs Date / Time: Height Weight BMI Pulse Rate Blood Pressure Temperature Respiratory Rate Body Surface Area Head Circumference Head Circ. Percentile Wt./Praneeth. Percentile BMI percentile Pulse Ox Inhaled Ox 11:25 AM 70.00 in 77.111 kg (170.00 lbs) 24.3 9 kg/m eter (2) 125/67 mm[Hg] Chief Complaint And Reason For Visit From encounter dated '11/26/2016 11:00'. R hand/wrist (chief complaint) Reason For Referral Reason For Referral No Information Plan Of Treatment Date Type Action Status Referral Ordered: RADEX HAND MINIMUM 3 VIEWS RT ordered History Of Present Illness Encounter Date Complaint History Of Prese nt Illness R hand/wrist Functional Status Date Functional Assessmen t No Information Instructions Date Instruction Additional Infor mation No Information Assessments Type Assessment Date assessment Arthritis of carpometacarpal (CM C) joint of right thumb Patient Care Teams Name Effective Dates (start - stop) Status Members No Information
--- OUTSIDE RECORDS SUMMARY | 2024-12-08 08:23 | XMS_ITS | Clinical Summary ---
Author Organization [facility] Address [address] [place] [address] Care Team Providers Care Ride Mechanic Name Role Phone Unavailable Primary Care Provider Unavailabl e Encounters Date Type Department Care Team Description 09/18/2024 External Device Data [facility] ABSTRACTION Provider, Abstract from Last 3 Months Social History Tobacco Use Types Packs/Day Years Used Date Smoking Tobacco: Never Assessed Sex and Gender Information Value Date Recorded Sex Assigned at Not on file Legal Sex Male 2:10 PM CDT Gender Identity Not on file Sexual Orientation Not on file Plan of Treatment Health Maintenance Due Date Last Done Comments DTAP/TDAP/TD VACCINES (1 - Tdap) 2001 HEPATITIS B VACCINES (1 of 3 - 19+ 3-dose series) 2001 INFLUENZA VACCINE (#1) 2024 HPV VACCINES Aged Out No longer eligi ble based on patient's age to complete this topic Insurance [address] [address] [employer] ACCESS CHOICE
== END 2024-12-08 08:19 | disposition home or self-care (01) ==
PROVIDERS: PCP Nurse Practitioner Adult Health; Visit Provider Urology
DX: N20.0 Calculus of kidney (principal)
CPT/HCPCS: 74018